=== PATIENT | female | born 1935 | race African-American/Black ===

== ENCOUNTER 2017-07-26 09:09 | Observation (INO) | payer MEDICARE ==
[~2017-07-26] VITALS: Ht 157.5 cm; Wt 111.1 kg
[~2017-07-26 09:09] MED LIST: ATOR10TA69; CAPT50TA3; MONT10TA21
[2017-07-26] MEDS ORDERED: ALLO100T PO (09:20)
[2017-07-26] MEDS ORDERED: SODIUM CHLORIDE 0.9% 1000ML BAG (SEPSIS BOLUS) IV ONE (09:45)
[2017-07-26 10:08] LABS: HEMATOCRIT. 41.2 % (36.0-48.0); HEMOGLOBIN. 13.4 g/dL (12.0-16.0); MEAN CORPUSCULAR HEMOGLOBIN 31.3 pg (28.0-32.0); MEAN CORPUSCULAR VOLUME 96.5 fL (81.0-99.0); PLATELET 178 x1000/uL (130-400); RED BLOOD CELL COUNT 4.27 mill/uL (4.2-5.4); RED CELL DISTRIBUTION WIDTH 15.2 % (11.6-14.6)
[2017-07-26 10:16] LABS: PROTHROMBIN TIME 10.8 sec (9.4-11.6)
[2017-07-26 10:24] LABS: CARBON DIOXIDE 28 mEq/L (21-32)
[2017-07-26 10:26] LABS: TROPONIN I < 0.02 ng/mL (0.00-0.04)
[2017-07-26 10:40] LABS: CHLORIDE 105 mEq/L (98-107)
[2017-07-26 10:50] LABS: PLATELET ESTIMATE NORMAL
[2017-07-26 11:04] LABS: CLARITY URINE TURBID (CLEAR); COLOR URINE YELLOW (YELLOW); GLUCOSE URINE NEGATIVE (NEGATIVE); KETONES URINE NEGATIVE (NEGATIVE); LEUKOCYTE ESTERASE URINE 3+ (NEGATIVE); NITRITE URINE POSITIVE (NEGATIVE); OCCULT BLOOD URINE 2+ (NEGATIVE); PH URINE 5.5 (4.5-8.0); PROTEIN URINE 2+ (NEGATIVE); SPECIFIC GRAVITY URINE 1.015 (1.005-1.030)
[2017-07-26] MEDS ORDERED: PIPERACILLIN/TAZOBACTAM 3.375GM/50ML PREMIX IV ONE (11:45)
[2017-07-26] MEDS: PIPERACILLIN/TAZ 3.375G PREMIX 50 ML IV NR ×2 (11:49→13:19)
[2017-07-26 16:30] VITALS: BP 131/65
[2017-07-26 18:23] VITALS: BP 131/68
[2017-07-26] MEDS ORDERED: LANS30CA55 PO (18:32)
[2017-07-26] MEDS ORDERED: RANI150C12 PO (18:32)
[2017-07-26] MEDS ORDERED: COLC0.6T66 PO (18:32)
[2017-07-26] MEDS ORDERED: ATOR10TA69 PO (18:32)
[2017-07-26 20:00] VITALS: BP 126/56
[2017-07-26] MEDS ORDERED: ACETAMINOPHEN 325MG TABLET PO PRN (20:15)
[2017-07-26] MEDS ORDERED: ONDANSETRON HCL 4MG/2ML VIAL IV PRN (20:15)
[2017-07-26] MEDS: PIPERACILLIN/TAZ 3.375G PREMIX 50 ML IV SCH (22:53)
[2017-07-27] VITALS: BP 113/50
[2017-07-27 04:00] VITALS: BP 121/53
[2017-07-27] MEDS: PIPERACILLIN/TAZ 3.375G PREMIX 50 ML IV SCH ×2 (05:11→13:37)
[2017-07-27 06:31] LABS: BASOPHILS % 0.4 % (0.0-2.0); EOSINOPHILS % 1.5 % (0.0-5.0); HEMATOCRIT. 36.6 % (36.0-48.0); LYMPHOCYTES % 22.3 % (20.0-50.0); MEAN CORPUSCULAR HEMOGLOBIN 31.6 pg (28.0-32.0); MEAN CORPUSCULAR VOLUME 96.9 fL (81.0-99.0); MEAN PLATELET VOLUME 10.4 fl (7.4-10.4); NEUTROPHILS % 64.8 % (40.0-76.0); PLATELET 158 x1000/uL (130-400); RED BLOOD CELL COUNT 3.78 mill/uL (4.2-5.4); RED CELL DISTRIBUTION WIDTH 15.3 % (11.6-14.6)
[2017-07-27 07:23] LABS: CARBON DIOXIDE 26 mEq/L (21-32); CHLORIDE 112 mEq/L (98-107); LDL CHOLESTEROL 87 mg/dL (5-100)
[2017-07-27 07:29] LABS: HDL CHOLESTEROL 36 mg/dL (40-59); T4 FREE 1.19 ng/dL (0.76-1.46)
[2017-07-27 08:00] VITALS: BP 137/75
[2017-07-27] MEDS ORDERED: LISINOPRIL 10MG TABLET PO SCH (09:00)
[2017-07-27 12:00] VITALS: BP 123/69
[2017-07-27] MEDS ORDERED: LEVOFLOXACIN 500MG TABLET PO NR (13:45)
[2017-07-27 14:00] VITALS: BP 123/69
== END 2017-07-27 14:45 | disposition still patient (30) ==
LOC: ER 09:09 → INTOOBSV 13:31 → 6EST 13:31 → EDBEDREQ 13:33 → EDBEDREQSVC 13:33 → ENRESERV 15:38 → CANBEDREQ 16:13
PROVIDERS: ADMIT Internal Medicine; ATTEND Internal Medicine
DX: N30.00 Acute cystitis without hematuria (principal); I10 Essential (primary) hypertension; E66.9 Obesity, unspecified; M10.9 Gout, unspecified; K21.9 Gastro-esophageal reflux disease without esophagitis; E78.00 Pure hypercholesterolemia, unspecified; Z90.710 Acquired absence of both cervix and uterus
CPT/HCPCS: 36415; 71010; 80053; 80061; 81001; 83605; 83880; 84439; 84443; 84484; 85025; 85610; 87040; 93005; 96361; 96365; 96366; 96367; 96375; 96376; 99285; G0378; J2543; J7050; 87086; J7030

== ENCOUNTER 2018-03-02 06:32 | Emergency (ER) | payer MEDICARE ==
[~2018-03-02] VITALS: Ht 157.5 cm; Wt 111.0 kg
[~2018-03-02 06:32] MED LIST changes: +ALLO100T PO; +ATOR10TA69 PO; +COLC0.6T66 PO; +LANS30CA55 PO; +RANI150C12 PO
[2018-03-02] MEDS ORDERED: ACETAMINOPHEN WITH CODEINE 300/30MG TABLET PO ONE (07:15)
[2018-03-02 08:31] LABS: CLARITY URINE CLEAR (CLEAR); COLOR URINE YELLOW (YELLOW); KETONES URINE NEGATIVE (NEGATIVE); LEUKOCYTE ESTERASE URINE 1+ (NEGATIVE); NITRITE URINE NEGATIVE (NEGATIVE); OCCULT BLOOD URINE NEGATIVE (NEGATIVE); PROTEIN URINE NEGATIVE (NEGATIVE); SPECIFIC GRAVITY URINE 1.018 (1.005-1.030); UROBILINOGEN URINE 0.2 E.U./dL (0.2-1.0)
[2018-03-02] MEDS ORDERED: CEFTRIAXONE 1 G PREMIX 50 ML IV ONE (09:15)
[2018-03-02 11:55] VITALS: BP 134/71
== END 2018-03-02 12:02 | disposition home or self-care (01) ==
LOC: ER 06:32
DX: N39.0 Urinary tract infection, site not specified (principal); I10 Essential (primary) hypertension; E78.00 Pure hypercholesterolemia, unspecified; K21.9 Gastro-esophageal reflux disease without esophagitis; Z90.710 Acquired absence of both cervix and uterus; Z98.890 Other specified postprocedural states
CPT/HCPCS: 81003; 87077; 87086; 87186; 96365; 96366; 99285; A6261; J0696

== ENCOUNTER 2018-03-05 08:37 | Emergency (ER) | payer MEDICARE ==
[~2018-03-05] VITALS: Ht 165.1 cm; Wt 109.0 kg
[2018-03-05] MEDS ORDERED: MORPHINE SULFATE 4 MG/ML CPJ (NOT FOR IM USE) IV STA (10:01)
[2018-03-05] MEDS ORDERED: SODIUM CHLORIDE 0.9% 1,000 ML IV ONE (10:01)
[2018-03-05] MEDS ORDERED: ONDANSETRON HCL 4MG/2ML VIAL IV STA (10:01)
[2018-03-05] MEDS ORDERED: KETOROLAC 30MG/ML VIAL IV STA (10:01)
[2018-03-05] MEDS ORDERED: CEFTRIAXONE 1 G PREMIX 50 ML IV ONE (10:15)
[2018-03-05 10:36] LABS: BASOPHILS % 0.9 % (0.0-2.0); HEMATOCRIT. 42.2 % (36.0-48.0); HEMOGLOBIN. 13.9 g/dL (12.0-16.0); LYMPHOCYTES % 14.8 % (20.0-50.0); MEAN CORPUSCULAR HEMOGLOBIN 31.9 pg (28.0-32.0); MEAN CORPUSCULAR VOLUME 96.9 fL (81.0-99.0); MEAN PLATELET VOLUME 9.7 fl (7.4-10.4); NEUTROPHILS % 76.3 % (40.0-76.0); PLATELET 222 x1000/uL (130-400); RED BLOOD CELL COUNT 4.35 mill/uL (4.2-5.4); RED CELL DISTRIBUTION WIDTH 15.1 % (11.6-14.6)
[2018-03-05 10:44] LABS: CHLORIDE 106 mEq/L (98-107); PROTHROMBIN TIME 10.3 sec (9.4-11.6)
[2018-03-05] MEDS ORDERED: HYDROCODONE/ACETAMINOPHEN 5/325MG TABLET PO ONE (13:00)
[2018-03-05 13:53] VITALS: BP 131/79
== END 2018-03-05 14:20 | disposition home or self-care (01) ==
LOC: ER 09:12 → CANBEDREQ 17:03
DX: N20.0 Calculus of kidney (principal); K57.30 Diverticulosis of large intestine without perforation or abscess without bleeding; N39.0 Urinary tract infection, site not specified; N28.1 Cyst of kidney, acquired; K76.0 Fatty (change of) liver, not elsewhere classified; I10 Essential (primary) hypertension; E78.00 Pure hypercholesterolemia, unspecified; K21.9 Gastro-esophageal reflux disease without esophagitis
CPT/HCPCS: 36415; 71045; 74176; 80053; 83605; 83690; 83880; 84484; 85025; 85610; 87040; 93005; 96365; 96366; 96375; 99285; J0696; J1885; J2270; J2405; J7030

== ENCOUNTER 2020-01-01 13:07 | Emergency (ER) | payer BC, MEDICARE ==
[~2020-01-01] VITALS: Ht 157.5 cm; Wt 109.0 kg
[~2020-01-01 13:07] MED LIST changes: +BENA1TAB18 MT; -CAPT50TA3; +MECL-133 PO
[2020-01-01] MEDS ORDERED: FLUTICASONE PROPIONATE 50MCG/SPRAY BOTTLE BOTHNSTRLS STA (16:36)
[2020-01-01] MEDS ORDERED: OXYMETAZOLINE HCL NASAL SPRAY 15ML BOTHNSTRLS STA (16:36)
[2020-01-01] MEDS ORDERED: GUAIFENESIN 200MG/10ML SUGAR FREE UDC PO ONE (18:30)
[2020-01-01 19:20] VITALS: BP 144/76
== END 2020-01-01 19:26 | disposition home or self-care (01) ==
LOC: ER 13:07
DX: R05 Cough (principal); K21.9 Gastro-esophageal reflux disease without esophagitis; E78.00 Pure hypercholesterolemia, unspecified; I10 Essential (primary) hypertension; Z90.710 Acquired absence of both cervix and uterus; Z87.440 Personal history of urinary (tract) infections; Z79.899 Other long term (current) drug therapy
CPT/HCPCS: 71045; 82962; 99283

== ENCOUNTER 2022-11-09 16:27 | Inpatient (IN) | payer BC ==
[~2022-11-09] VITALS: Ht 167.6 cm; Wt 99.8 kg
[2022-11-09 18:41] LABS: EOSINOPHILS % 2.3 % (0.0-5.0); HEMATOCRIT. 40.9 % (36.0-48.0); HEMOGLOBIN. 13.2 g/dL (12.0-16.0); MEAN CORPUSCULAR HEMOGLOBIN 31.5 pg (28.0-32.0); MEAN PLATELET VOLUME 9.7 fl (7.4-10.4); MONOCYTES % 7.6 % (2.0-8.0); NEUTROPHILS % 65.1 % (40.0-76.0); PLATELET 180 x1000/uL (130-400); RED BLOOD CELL COUNT 4.17 mill/uL (4.2-5.4); RED CELL DISTRIBUTION WIDTH 15.5 % (11.6-14.6)
[2022-11-09 18:50] LABS: CHLORIDE 111 mEq/L (98-107)
[2022-11-09 18:51] LABS: PROTHROMBIN TIME 10.3 sec (9.6-11.0)
[2022-11-09] MEDS ORDERED: ASPIRIN 81MG TABLET PO ONE (20:00)
[2022-11-09] MEDS ORDERED: ASPIRIN 81MG TABLET PO NR (23:15)
[2022-11-10 05:40] VITALS: BP 153/63
[2022-11-10 08:00] VITALS: BP 138/67
[2022-11-10 10:00] VITALS: BP 137/68
[2022-11-10 12:00] VITALS: BP 114/45
[2022-11-10] MEDS ORDERED: ATORVASTATIN CALCIUM 10MG TABLET PO SCH (15:15)
[2022-11-10] MEDS ORDERED: ALBUTEROL (0.083%) 2.5MG/3ML NEB HHN PRN (15:30)
[2022-11-10] MEDS ORDERED: ONDANSETRON HCL 4MG/2ML INJ IV PRN (15:30)
[2022-11-10] MEDS ORDERED: ACETAMINOPHEN 325MG TABLET PO PRN (15:30)
[2022-11-10] MEDS ORDERED: IPRATROPIUM/ALBUTEROL 0.5-3(2.5)MG/3ML NEB HHN PRN (15:30)
[2022-11-10] MEDS ORDERED: IPRATROPIUM BROMIDE (0.02%) 0.5MG/2.5ML NEB HHN PRN (15:30)
[2022-11-10] MEDS: ALLOPURINOL 100 MG TABLET PO SCH (15:35)
[2022-11-10] MEDS: ATORVASTATIN CALCIUM 10MG TABLET PO SCH (15:35)
[2022-11-10] MEDS: LANSOPRAZOLE 30MG DR CAPSULE PO SCH (15:35)
[2022-11-10] MEDS: MONTELUKAST SODIUM 10MG TABLET PO SCH (15:35)
[2022-11-10] MEDS: ENOXAPARIN 40MG/0.4ML SYR SUBCUT SCH (15:36)
[2022-11-10] MEDS ORDERED: REGADENOSON 0.4 MG/5 ML IV ONE (15:45)
[2022-11-10 16:00] VITALS: BP 120/55
[2022-11-10 18:22] LABS: T4 FREE 1.21 ng/dL (0.76-1.46)
[2022-11-10 20:00] VITALS: BP 165/58
[2022-11-11] VITALS: BP 137/90
[2022-11-11 00:04] LABS: CREATINE KINASE MB FRACTION 1.2 ng/mL (0.5-3.6)
[2022-11-11 04:00] VITALS: BP 141/51
[2022-11-11 07:43] LABS: BASOPHILS % 0.7 % (0.0-2.0); EOSINOPHILS % 3.3 % (0.0-5.0); HEMOGLOBIN. 12.9 g/dL (12.0-16.0); LYMPHOCYTES % 21.1 % (20.0-50.0); MEAN CORPUSCULAR HEMOGLOBIN 31.6 pg (28.0-32.0); MEAN CORPUSCULAR VOLUME 97.9 fL (81.0-99.0); MEAN PLATELET VOLUME 10.6 fl (7.4-10.4); MONOCYTES % 7.3 % (2.0-8.0); NEUTROPHILS % 67.6 % (40.0-76.0); PLATELET 175 x1000/uL (130-400); RED BLOOD CELL COUNT 4.09 mill/uL (4.2-5.4); RED CELL DISTRIBUTION WIDTH 15.7 % (11.6-14.6)
[2022-11-11 07:57] LABS: CREATINE KINASE MB FRACTION 1.1 ng/mL (0.5-3.6)
[2022-11-11] MEDS: ATORVASTATIN CALCIUM 10MG TABLET PO SCH (09:00)
[2022-11-11] MEDS: LANSOPRAZOLE 30MG DR CAPSULE PO SCH (09:00)
[2022-11-11] MEDS: MONTELUKAST SODIUM 10MG TABLET PO SCH (09:00)
[2022-11-11] MEDS: ALLOPURINOL 100 MG TABLET PO SCH (09:00)
[2022-11-11] MEDS ORDERED: REGADENOSON 0.4 MG/5 ML IV ONE (09:28)
[2022-11-11] MEDS ORDERED: AMLODIPINE 5MG TABLET PO SCH (12:30)
[2022-11-11] MEDS: ENOXAPARIN 40MG/0.4ML SYR SUBCUT SCH (16:00)
== END 2022-11-11 18:50 | disposition home or self-care (01) | DRG 313 ==
LOC: ER 16:27 → MICUSO 22:31 → EDBEDREQTM 23:20 → EDBEDREQ 23:20 → 7EST 11-10 04:56
PROVIDERS: ADMIT Internal Medicine; ATTEND Internal Medicine
DX: R07.9 Chest pain, unspecified (principal); N17.9 Acute kidney failure, unspecified; E66.9 Obesity, unspecified; E78.00 Pure hypercholesterolemia, unspecified; M10.9 Gout, unspecified; M19.90 Unspecified osteoarthritis, unspecified site; K21.9 Gastro-esophageal reflux disease without esophagitis; E78.5 Hyperlipidemia, unspecified; I12.9 Hypertensive chronic kidney disease with stage 1 through stage 4 chronic kidney disease, or unspecified chronic kidney disease; N18.9 Chronic kidney disease, unspecified; E04.9 Nontoxic goiter, unspecified; Z68.35 Body mass index [BMI] 35.0-35.9, adult; Z79.899 Other long term (current) drug therapy; Z90.710 Acquired absence of both cervix and uterus
CPT/HCPCS: 36415; 71045; 71250; 78452; 80048; 80053; 82550; 82553; 84439; 84443; 84484; 85025; 93005; 93017; 93306; 93970; 99285; A9500; J2785